=== PATIENT | male | born 1955 | race Caucasian/White ===

== ENCOUNTER 2023-11-28 07:18 | Emergency (ER) | payer OTHER ==
[~2023-11-28] VITALS: Ht 175.3 cm; Wt 84.9 kg
[2023-11-28] MEDS: NS 1,000 ML IV ONE (09:20)
[2023-11-28] MEDS ORDERED: ONDA-282 PO (10:24)
[2023-11-28] MEDS ORDERED: KETO10TAB PO (10:24)
[2023-11-28 10:29] LABS: BASO % 0.3 % (0.0-1.0); EOS # 0.2 10^3/uL (0.0-0.5); EOS % 2.1 % (0.0-3.0); HEMATOCRIT 43.1 % (42.0-52.0); HEMOGLOBIN 14.4 g/dl (13.5-17.5); LYMPH # 1.4 10^3/uL (1.5-5.0); LYMPH % 18.9 % (24.0-44.0); MEAN CORPUSCULAR HEMOGLOBIN 31.9 pg (27.0-33.0); MEAN CORPUSCULAR HGB CONC 33.4 g/dl (32.0-36.5); MEAN CORPUSCULAR VOLUME 95.6 fl (80.0-96.0); MONO # 0.6 10^3/uL (0.0-0.8); MONO % 7.4 % (2.0-8.0); NEUTROPHILS # 5.3 10^3/uL (1.5-8.5); PLATELET COUNT, AUTOMATED 179 10^3/uL (150-450); RED BLOOD COUNT 4.51 10^6/uL (4.30-6.10); WHITE BLOOD COUNT 7.5 10^3/uL (4.0-10.0)
[2023-11-28 10:46] LABS: INR 1.16; PARTIAL THROMBOPLASTIN TIME 31.5 SECONDS (24.8-34.2); PROTHROMBIN TIME 14.4 SECONDS (12.5-14.5)
[2023-11-28 10:52] LABS: LIPASE 37 U/L (12-53)
[2023-11-28 10:54] LABS: ALBUMIN 3.7 G/DL (3.2-5.2); ALKALINE PHOSPHATASE 56 U/L (46-116); ALT/SGPT 22 U/L (7.0-40); AMYLASE 50 U/L (30-118); AST/SGOT 19 U/L (<34); BILIRUBIN,DIRECT 0.3 MG/DL (<0.4); BILIRUBIN,TOTAL 1.1 MG/DL (0.3-1.2); BLOOD UREA NITROGEN 23 MG/DL (9-23); CARBON DIOXIDE LEVEL 29 MMOL/L (20-31); CHLORIDE LEVEL 109 MMOL/L (98-107); CREATININE FOR GFR 0.86 MG/DL (0.70-1.30); GLOMERULAR FILTRATION RATE > 60.0 (>49); GLUCOSE, FASTING 114 MG/DL (74-106); POTASSIUM SERUM 4.1 MMOL/L (3.5-5.1); SODIUM LEVEL 143 MMOL/L (136-145); TOTAL PROTEIN 6.2 G/DL (5.7-8.2)
[2023-11-28 11:46] VITALS: BP 126/75; TEMP 97.6; O2SAT 98
== END 2023-11-28 11:50 | disposition home or self-care (01) ==
LOC: M ED 07:18
DX: N20.0 Calculus of kidney (principal); N28.1 Cyst of kidney, acquired; D17.72 Benign lipomatous neoplasm of other genitourinary organ; M47.896 Other spondylosis, lumbar region; M16.9 Osteoarthritis of hip, unspecified; Z79.899 Other long term (current) drug therapy